=== PATIENT | male | born 1955 | race African-American/Black ===

== ENCOUNTER 2024-11-22 07:26 | Emergency (ER) | payer MEDICARE, MEDICAID ==
[~2024-11-22] VITALS: Ht 175.3 cm; Wt 126.8 kg
[~2024-11-22 07:26] MED LIST: CLA10T PO; LISI40TA13 PO
[2024-11-22] MEDS ORDERED: nitroGLYCERIN 0.4mg SUBLingual tab SL PRN (07:40)
--- NOTE | 2024-11-22 07:46 | ELECTROCARDIOGRAPH REPORT ---
[facility] Test Date: 2024-11-22 Test Time: 07:30:40 Pat Name: RUI DIAZ Department: EMERGENCY ROOM Room: Gender: M Humidifier Attendant: RUPALI : 1955 Requested By: ARINA ELDRIDGE Order Number: [id number] Reading MD: Dr. Piter Thornton Measurements Intervals [place] Rate: 64 P: 6 NV: 188 QRS: 38 QRSD: 97 T: -83 QT: 409 QTc: 422 Interpretive Statements Sinus rhythm Probable left atrial enlargement RSR' in V1 or V2, probably normal variant Abnormal T, consider ischemia, diffuse leads ST elevation, consider anterior injury Electronically Signed On 11-22-2024 18:47:[address] Piter Thornton Please click the below link to view image of tracing.
[2024-11-22 08:06] LABS: BASOPHILS % (AUTO) 0.7 % (0-1); EOSINOPHILS # (AUTO) 0.2 X10'3 (0-0.9); EOSINOPHILS % (AUTO) 3.5 % (0-6); HEMATOCRIT 42.6 % (42.0-52.0); HEMOGLOBIN 14.4 g/dl (14.0-17.9); LYMPHOCYTES # (AUTO) 2.1 X10'3 (1.1-4.8); LYMPHOCYTES % (AUTO) 31.5 % (21-51); MEAN CORPUSCULAR HEMOGLOBIN 27.7 PG (27.0-31.0); MEAN CORPUSCULAR HGB CONC 33.8 g/dL (33.0-36.5); MEAN CORPUSCULAR VOLUME 81.9 FL (78-98); MEAN PLATELET VOLUME 7.3 FL (7.4-10.4); MONOCYTES # (AUTO) 0.5 X10'3 (0-0.9); NEUTROPHILS # (AUTO) 3.8 X10'3 (1.8-7.7); NEUTROPHILS % (AUTO) 56.3 % (42-75); PLATELET COUNT 278 X10'3 (140-440); RED CELL DISTRIBUTION WIDTH 15.2 % (11.5-14.5); WHITE BLOOD COUNT 6.7 X10'3 (4.5-11.0)
[2024-11-22 08:15] LABS: ALANINE AMINOTRANSFERASE 23 U/L (12-78); ALBUMIN 4.2 G/DL (3.4-5.0); ALBUMIN/GLOBULIN RATIO 1.1 (1.1-1.5); ALKALINE PHOSPHATASE 55 IU/L (46-116); ANION GAP 6 (8-16); ASPARTATE AMINO TRANSFERASE 24 U/L (10-37); BILIRUBIN,TOTAL 0.8 MG/DL (0.1-1.0); BLOOD UREA NITROGEN 21 MG/DL (7-18); BUN/CREATININE RATIO 16.4 (10.0-20.0); CALCIUM 8.7 MG/DL (8.5-10.1); CHLORIDE 105 MMOL/L (99-107); CREATININE 1.28 MG/DL (0.60-1.10); GLUCOSE 128 MG/DL (70-104); POTASSIUM 3.9 MMOL/L (3.5-5.1); SODIUM 139 MMOL/L (135-145); TOTAL CARBON DIOXIDE 27.8 MMOL/L (24-32); eCRCL 56 ML/MIN; eGFR 68 ML/MIN
--- NOTE | 2024-11-22 08:23 | RADIOLOGY REPORT ---
CHEST RADIOGRAPH Indication: chest pain Technique: Single frontal view of the chest was obtained COMPARISON: None FINDINGS: Lines and Tubes: None Lungs: Clear Pleura: No effusion. No pneumothorax. Cardiomediastinal contours: Unremarkable Bones: Unremarkable IMPRESSION: 1. No acute disease.
--- NOTE | 2024-11-22 10:34 | Physician Documentation ---
History of Present Illness ~ Chief Complaint: Chest Pain Stated Complaint: CHEST PAIN Time Seen by MD: 07:39 Primary Medical Doctor: Domingo Mode of Arrival: Dropped Off HPI 69 year old male was working in his yard early this morning and felt the onset of chest pressure, began belching, as well as feeling sweaty. He does have a cardiac history and is cared for by Dr. Johnson with a recent stress test. On arrival here his symptoms have largely improved. He denies fever, shortness of breath, N/V/D, cough. Medication Reconciliation Allergies: Coded Allergies: codeine (Verified Allergy, Unknown, 11/22/24) Scheduled Lisinopril* (Lisinopril*), 40 MG PO DAILY, (Reported) Loratadine* (Claritin*), 10 MG PO DAILY, (Reported) Past Medical History Past Medical History: Chronic Back Pain Smoking Status: Current every day smoker Review of Systems All Other Systems at this time: Reviewed and Negative Physical Exam Vital Signs: RN Vital Signs have been reviewed: Yes, Temperature: 97.5, Source: Temporal, Heart Rate: 61, Respiratory Rate: 16, BP: 116/91, Pulse Oximetry: 100, Weight: 126.820 Oxygen Flow Rate: 0 Physical Exam HEENT: PERRL, moist oral mucosa, EOMI Pulmonary: No respiratory distress CTAB Cardiac: RRR, no murmur, rub or gallop GI: nondistended, soft, nontender, no guarding, no rebound MSK: no deformity Skin: w/d/i, no rash Neuro: alert, nonfocal Psych: normal affect Progress Results/Orders Results/Orders Orders - ARINA ELDRIDGE MD Chest,Single View (11/22/24 07:36) Nitroglycerin Sublingual Tab (Nitrostat (11/22/24 07:40) Completed Orders - ARINA ELDRIDGE MD CMP (11/22/24 07:36) Cbc/Diff (11/22/24 07:36) Chest,Single View (11/22/24 07:36) Electrocardiogram (11/22/24 ) Hs Troponin I W Calculations (11/22/24 07:49) Troponin (Single) (11/22/24 09:34) Vital Signs 6/28/25 6/28/25 6/28/25 6/28/25 07:40 07:51 07:55 08:31 Temp 97.5 97.5 97.5 Pulse 66 66 61 Resp 18 21 14 17 B/P (MAP) 153/100 153/100 (117) 114/82 (93) Pulse Ox 98 99 99 O2 Flow Rate 0 0 0 11/22/24 11/22/24 09:36 10:04 Temp 97.5 Pulse 63 61 Resp 16 16 B/P (MAP) 119/85 (96) 116/91 (99) Pulse Ox 98 100 O2 Flow Rate 0 0 Laboratory Tests Test 11/22/24 07:45 11/22/24 07:49 11/22/24 09:49 White Blood Count 6.7 Red Blood Count 5.20 Hemoglobin 14.4 Hematocrit 42.6 Mean Corpuscular Volume 81.9 Mean Corpuscular Hemoglobin 27.7 Mean Corpuscular Hemoglobin Concent 33.8 Red Cell Distribution Width 15.2 H Platelet Count 278 Mean Platelet Volume 7.3 L Neutrophils (%) (Auto) 56.3 Lymphocytes (%) (Auto) 31.5 Monocytes (%) (Auto) 8.0 Eosinophils (%) (Auto) 3.5 Basophils (%) (Auto) 0.7 Neutrophils # (Auto) 3.8 Lymphocytes # (Auto) 2.1 Monocytes # (Auto) 0.5 Eosinophils # (Auto) 0.2 Basophils # (Auto) 0.0 CBC Comment Sodium Level 139 Potassium Level 3.9 Chloride Level 105 Carbon Dioxide Level 27.8 Anion Gap 6 L Blood Urea Nitrogen 21 H Creatinine 1.28 H Estimated GFR/1.73 m2 68 BUN/Creatinine Ratio 16.4 Glucose Level 128 H Calcium Level 8.7 Total Bilirubin 0.8 Aspartate Amino Transf (AST/SGOT) 24 Alanine Aminotransferase (ALT/SGPT) 23 Alkaline Phosphatase 55 Total Protein 8.0 Albumin 4.2 Globulin 3.8 Albumin/Globulin Ratio 1.1 Chemistry Comments Troponin I High Sensitivity 9 7 Medical Decision Making Findings 69 year old male with chest pain and history of CAD/stenting. Exam and workup were negative including troponin x 2. EKG by my interpretation demonstrates diffuse T-wave inversions, rate of 62/minute, and normal sinus rhythm--these findings were consistent with prior EKGs which we have on file for him and there are no acute changes. CXR by my interpretation demonstrates normal borders, no cardiomegaly, no infiltrate, no acute findings. Offered admission for chest pain rule-out and patient adamantly refused despite thorough discussion of risks/benefits. Differential Dx:Considerations: Include: angina, cholelithiasis, CHF, esophageal reflux/spasm, myocardial infarction, pericarditis, pneumonia, pneumothorax, pulmonary embolus Additional Information *Patient adamantly refused admission for inpatient chest pain workup.* Departure Disposition: 01 HOME / SELF CARE / HOMELESS Impression: Primary Impression: Chest pain Condition: Stable Discharge Instructions: Nonspecific Chest Pain, Adult Referrals: NO PRIMARY CARE PROVIDER (PCP) Education Educated: Patient Educated regarding: diagnosis, treatment, prognosis, need for follow up Signature Scribe Signature: . Attestation: . ARINA ELDRIDGE MD Nov 22, 2024 10:34
[2024-11-22 10:38] VITALS: BP 115/84; PULSE 61; RESP 14; O2SAT 98
[2024-11-22 10:46] VITALS: TEMP 97.5
--- NOTE | 2024-11-22 18:16 | ELECTROCARDIOGRAPH REPORT ---
[facility] Test Date: 2024-11-22 Test Time: 08:14:35 Pat Name: RUI DIAZ Department: [facility] Patient ID: [id number] Room: Gender: M Uniform Designer: : 1955 Requested By: DEPARTMENT EMERGENCY Order Number: [id number] Reading MD: Dr. Piter Thornton Measurements Intervals [place] Rate: 62 P: -7 AK: 186 QRS: 30 QRSD: 99 T: 254 QT: 439 QTc: 446 Interpretive Statements Sinus rhythm Probable left atrial enlargement RSR' in V1 or V2, right VCD or RVH Abnormal T, consider ischemia, diffuse leads Borderline ST elevation, anterior leads Electronically Signed On 11-22-2024 18:47:[address] Piter Thornton Please click the below link to view image of tracing.
== END 2024-11-22 10:45 | disposition home or self-care (01) ==
LOC: ER 07:27
DX: R07.89 Other chest pain (principal); F17.200 Nicotine dependence, unspecified, uncomplicated; Z88.5 Allergy status to narcotic agent
CPT/HCPCS: 36415; 71045; 80053; 84484; 85025; 93005; 99285